=== PATIENT | female | born 1985 | race Asian ===

== ENCOUNTER 2016-11-07 15:31 | Emergency (ER) | payer MEDICAID ==
--- NOTE | 2016-11-07 16:29 | EDPHY ---
H & P Time Seen by Provider: 11/07/16 16:02 HPI/ROS: CHIEF COMPLAINT: Right lateral eyebrow laceration, cough HISTORY OF PRESENT ILLNESS: 31-year-old female presents to the ER with primary complaint of right lateral eyebrow laceration. She is wearing her glasses, some through Frisbee and her glasses impacted this area sustaining a laceration to her right lateral eyebrow. Denies: Loss of consciousness, headache, visual acuity changes, rhinorrhea, midline C-spine pain. 2nd complaint is 1 month of intermittently productive cough without dyspnea, without chest pain without fever or chills without flu-like symptoms. Nonsmoker. REVIEW OF SYSTEMS: A ten point review of systems was performed and is negative with the exception of the items mentioned in the HPI PAST MEDICAL/SURGICAL HISTORY: no anticoagulant use, no relevant medical/ surgical history SOCIAL HISTORY: Nonsmoker PHYSICAL EXAM 1) GENERAL: Well-developed, well-nourished, alert and oriented. Appears to be in no acute distress. Answering questions appropriately. 2) HEAD: Normocephalic, right lateral eyebrow 1.5 cm well-demarcated laceration , superficial 3) HEENT: Pupils equal, round, reactive to light bilaterally. Negative Horners. Nasopharynx, oropharynx, clear. No deformity or angulation of nose. No septal hematoma. No rhinorrhea. No oral trauma. Ears bilaterally with normal tympanic membranes. No hemotympanum. No fluid or blood in the external auditory canal. No raccoon eyes. No Mata sign. Teeth are normally aligned with no gross malocclusion, TMJ bilaterally nontender, facial bones nontender including the zygomatic arch, maxilla mandible. 4) NECK: No cervical collar is on. Posterior cervical spine is nontender, no stepoff, no effusion. Full range of motion which does not elicit any midline cervical spine pain, no posterior midline tenderness, no step-off. 5) LUNGS: Clear to auscultation bilaterally, no wheezes, no rhonchi, no retractions. No flaring, no grunting. Moving symmetrically. No crepitus. 6) HEART: Regular rate and rhythm, 7) ABDOMEN: No guarding, no rebound, no focal tenderness, no peritoneal signs, no signs of trauma, no ecchymosis 8) MUSCULOSKELETAL: Moving all extremities, no focal areas of tenderness, no obvious trauma. 9) BACK: No midline vertebral tenderness, no fluctuance, no step-off, no obvious trauma, no visual or palpable abnormality. 10) SKIN: No laceration. No abrasion DIFFERENTIAL DIAGNOSIS: Not necessarily in any particular order, my differential diagnosis includes, but is not limited to, concussion, skull fracture, intraparenchymal contusion, subarachnoid, subdural and epidural hematoma. The patient understands that this diagnosis is provisional and can never be 100% accurate. Smoking Status: Never smoked Constitutional: Initial Vital Signs Temperature (C) 36.7 C 11/07/16 15:43 Heart Rate 93 11/07/16 15:43 Respiratory Rate 18 11/07/16 15:43 Blood Pressure 117/80 11/07/16 15:43 O2 Sat (%) 99 11/07/16 15:43 O2 Delivery Mode Room Air Allergies/Adverse Reactions: Sulfa (Sulfonamide Antibiotics) Allergy (Verified 11/07/16 15:41) Home Medications: Medication Instructions Recorded AZITHROMYCIN [Z-PACK] 500 mg PO DAILY #1 packet 11/07/16 Albuterol [Proventil Inhaler HFA 1 - 2 puffs IH Q4PRN PRN #1 mdi 11/07/16 (*)] Benzonatate [Tessalon Pearles (RX)] 200 mg PO TID PRN #15 cap 11/07/16 MDM/Departure - MDM Procedures: Procedure: Laceration repair with tissue adhesive Verbal consent was obtained from the patient. The 1.5 cm laceration on the right lateral eyebrowwas scrubbed and explored to its base with a gloved finger. No foreign body seen, no foreign bodies palpated. There were no deep structures involved. The wound was repaired with tissue adhesive. The procedure was performed by myself. Patient has been informed that scarring will occur, although every effort has been made to minimize this. ED Course/Re-evaluation: Regarding the patient's eyebrow lacerations has been closed with tissue adhesive. Doubt intracranial hemorrhage and/or skull fracture. I do not think that imaging currently indicated. Usual and customary head injury precautions instructions provided Regarding the patient's complaint of 1 month of cough, I think a trial of antibiotics is appropriate given the longevity of her symptoms. Do not think that chest x-ray indicated as her lungs are clear bilaterally, she is maintain normal saturations breathing comfortably. She is also prescribed antitussive and albuterol meter dose inhaler. Recommend follow up with primary care provider. - Depart Disposition: Home, Routine, Self-Care Clinical Impression: Cough Laceration of eyebrow Qualifiers: Encounter type: initial encounter Laterality: right Qualified Code(s): S01.111A - Laceration without foreign body of right eyelid and periocular area, initial encounter Condition: Good Instructions: Acute Cough (ED), Laceration (ED) Additional Instructions: PLEASE RETURN TO THE EMERGENCY DEPARTMENT (ED) IMMEDIATELY IF YOU HAVE INCREASED HEADACHE, PERSISTENT HEADACHE, VOMITING, WEAKNESS, CONFUSION OR VISUAL PROBLEMS. WE RECOMMEND THAT YOU DO NOT RESUME CONTACT SPORTS OR ACTIVITIES THAT TAKE COORDINATION OR BALANCE SUCH SKIING OR RIDING A BICYCLE UNTIL CLEARED TO DO SO BY YOUR DOCTOR OR BY A NEUROLOGIST. Prescriptions: Albuterol [Proventil Inhaler HFA (*)] 1 - 2 puffs IH Q4PRN PRN #1 mdi PRN Reason: Cough, Moderate AZITHROMYCIN [Z-PACK] 500 mg PO DAILY #1 packet Benzonatate [Tessalon Pearles (RX)] 200 mg PO TID PRN #15 cap PRN Reason: Cough, Moderate Referrals: Tonia Marsh MD [Primary Care Provider] - 2-3 days, call for appt.
[2016-11-07 16:57] VITALS: BP 122/85; PULSE 94; RESP 16; TEMP 97.9; O2SAT 96
== END 2016-11-07 16:54 | disposition home or self-care (01) ==
PROC: 0HQ1XZZ Repair Face Skin, External Approach (ICD-10-PCS; principal; 2016-11-07)
DX: S01.111A Laceration without foreign body of right eyelid and periocular area, initial encounter (principal); R05 Cough; W25.XXXA Contact with sharp glass, initial encounter

== ENCOUNTER 2016-11-13 14:46 | Emergency (ER) | payer MEDICAID ==
[2016-11-13 14:51] VITALS: BP 111/70; PULSE 84; RESP 18; TEMP 98.6; O2SAT 98
--- NOTE | 2016-11-13 15:30 | EDPHY ---
H & P Smoking Status: Never smoked Time Seen by Provider: 11/13/16 15:22 HPI/ROS: CHIEF COMPLAINT: Wound check right lateral eyebrow laceration HISTORY OF PRESENT ILLNESS: 31-year-old female seen emergency department previously by myself after sustaining laceration to right lateral eyebrow after someone threw a Frisbee which then impacted her glasses which then impacted her skin. At that time the wound is closed with tissue adhesive after usual and customary irrigation in the ER. She returns to the ER stating that she has a purulent discharge from the laceration. At her last emergency department visit she was given a prescription for azithromycin, unrelated to her laceration, she was complaining of ongoing cough, this has now resolved. She denies: Fever, chills, visual acuity changes, pain with extraocular movements. She has no history of chronic skin infections PHYSICAL EXAM (Prior to examination, patient consented to physical exam, hands were washed and my usual and customary physical exam procedures followed) 1) GENERAL: Well-developed, well-nourished, alert and oriented. Appears to be in no acute distress. 2) HEAD: Normocephalic 3) HEENT: sclera anicteric . Extraocular movements are pain-free, no abnormal gaze, there is no proptosis, no crepitus in the periorbital region, no periorbital erythema. 4) LUNGS: Breathing comfortably. 5) SKIN: right lateral laceration has tissue adhesive in place with underlying (Anup,Junior Ashley) Constitutional: Initial Vital Signs Temperature (C) 37 C 11/13/16 14:48 Heart Rate 84 11/13/16 14:48 Respiratory Rate 18 11/13/16 14:48 Blood Pressure 111/70 11/13/16 14:48 O2 Sat (%) 98 11/13/16 14:48 O2 Delivery Mode Room Air Allergies/Adverse Reactions: Sulfa (Sulfonamide Antibiotics) Allergy (Verified 11/13/16 14:48) Home Medications: Medication Instructions Recorded AZITHROMYCIN [Z-PACK] 500 mg PO DAILY #1 packet 11/07/16 Albuterol [Proventil Inhaler HFA 1 - 2 puffs IH Q4PRN PRN #1 mdi 11/07/16 (*)] Benzonatate [Tessalon Pearles (RX)] 200 mg PO TID PRN #15 cap 11/07/16 Cephalexin [Keflex] 500 mg PO TID 7 Days cap 11/13/16 MDM/Departure - [facility] ED Course/Re-evaluation: This patient has no evidence of periorbital or orbital cellulitis. She does have evidence of localized skin infection. She has previously placed on azithromycin for URI symptoms not for wound infection prophylaxis. Today in the ER her wound has been cultured, cleansed, as she does have evidence of localized infection . Tissue adhesive has been removed and will be allowed to heal via secondary intention. This was not a dog bite to this area and it is not clear that this frisbee actually impacted directly to her face. She does note that this frisbee had been hitting the ground, had once gone to the [place] and had been in her friends dog's mouth at 1 time as well. The patient has no history of cutaneous MRSA no history of chronic skin infections and did not sustain direct bite or direct seeding from mouth to this wound. Doubt pasteurella. Plan will be starting the patient on oral Keflex as this should provide adequate coverage for . Care of patient under supervision of secondary supervising physician Dr Garcia . (Junior Hebert) The patient was evaluated and managed by the physician environmental engineering assistant. I have reviewed this chart and I agree with the findings and plan of care as documented , as indicated by my signature. I am the secondary supervising physician. ( Iris Garcia) - Depart Disposition: Home, Routine, Self-Care Clinical Impression: Infected laceration Condition: Good Instructions: Laceration (ED), Wound Infection (ED) Additional Instructions: Return to the emergency department if the area gets tender, if you develop pain with eye movement or any other symptoms that concern you. Prescriptions: Cephalexin [Keflex] 500 mg PO TID 7 Days cap Referrals: Tonia Marsh MD [Primary Care Provider] - 1-2 days without fail
== END 2016-11-13 15:45 | disposition home or self-care (01) ==
DX: L08.9 Local infection of the skin and subcutaneous tissue, unspecified (principal); W22.8XXD Striking against or struck by other objects, subsequent encounter

== ENCOUNTER 2017-11-09 14:23 | Observation (INO) | payer MEDICAID ==
[2017-11-09 15:02] LABS: PLATELET COUNT 275 10^3/uL (150-400)
--- NOTE | 2017-11-09 15:15 | EDPHY ---
H & P Stated Complaint: LMP 07/11/2017 vag bleeding, cramping and passed tissue Time Seen by Provider: 11/09/17 14:50 HPI/ROS: CHIEF COMPLAINT: Vaginal bleeding, HISTORY OF PRESENT ILLNESS: 32-year-old female TAB 1 LMP 07/11/17 presents with vaginal bleeding. Onset of vaginal bleeding 2 days ago. The bleeding is moderate and is associated with moderate pelvic cramping. Using several pads daily. No dizziness or weakness. No care. REVIEW OF SYSTEMS: complete 10 point ROS reviewed and is negative except for the noted elements in the HPI - Personal History LMP (Females 10-55): Current Tetanus Diphtheria and Acellular Pertussis (TDAP): Yes Tetanus Vaccine Date: < 10 years - Medical/Surgical History Hx Asthma: No Hx Chronic Respiratory Disease: No Hx Diabetes: No Hx Cardiac Disease: No Hx Renal Disease: No Hx Cirrhosis: No Hx Alcoholism: No Hx HIV/AIDS: No Hx Splenectomy or Spleen Trauma: No Other PMH: anxiety- takes medicinal marijuana for same/pelvic fx - Social History Smoking Status: Current every day smoker - Physical Exam Exam: General Appearance: Alert, pleasant Eyes: Pupils equal and round, no conjunctival pallor ENT, Mouth: Mucous membranes moist Neck: Normal inspection Respiratory: Lungs are clear to auscultation Cardiovascular: Regular rate and rhythm Gastrointestinal: Abdomen is soft, suprapubic tenderness Genitourinary: Blood clots in vaginal vault, cleared by me, the cervix is open to ringtip forceps Neurological: A&O, nonfocal, normal gait Skin: Warm and dry Extremities: Normal inspection Psychiatric: Mood and affect normal Constitutional: Initial Vital Signs Temperature (C) 36.8 C 11/09/17 14:26 Heart Rate 86 11/09/17 14:26 Respiratory Rate 18 11/09/17 14:26 Blood Pressure 116/79 11/09/17 14:26 O2 Sat (%) 99 11/09/17 14:26 O2 Delivery Mode Room Air Allergies/Adverse Reactions: Sulfa (Sulfonamide Antibiotics) Allergy (Verified 11/13/16 14:48) Home Medications: Medication Instructions Recorded NK [No Known Home Meds] 11/09/17 Medical Decision Making - Diagnostics Imaging Results: Imaging Impressions Obstetrics Ultrasound 11/09/17 14:54 Impression: 8 week 4 day intrauterine gestation with a pole identified within a gestational sac without cardiac activity identified, compatible with demise. Results called to Dr. Bernal at 3:50 p.m. Imaging: Discussed imaging studies w/ title i instructional assistant Radiologist, I viewed and interpreted images myself ED Course/Re-evaluation: This patient presents with pelvic cramping and vaginal bleeding. Quantitative beta HCG 1881. Ultrasound reveals intrauterine demise. Patient has required multiple doses of IV morphine to control the pain. Dr Abel consulted for possible D&C. Will see pt on floor. Pt admitted to L+D. Differential Diagnosis: Differential diagnosis includes though it is not limited to ectopic , ovarian cyst, ovarian torsion, PID, UTI, appendicitis. - Data Points Laboratory Results: Laboratory Results 11/09/17 14:25 11/09/17 14:25 11/09/17 11/09/17 11/09/17 14:50 14:25 14:25 WBC 8.97 10^3/uL 10^3/uL (3.80-9.50) RBC 4.64 10^6/uL 10^6/uL (4.18-5.33) Hgb 14.0 g/dL g/dL (12.6-16.3) Hct 40.5 % % (38.0-47.0) MCV 87.3 fL fL (81.5-99.8) MCH 30.2 pg pg (27.9-34.1) MCHC 34.6 g/dL g/dL (32.4-36.7) RDW 12.3 % % (11.5-15.2) Plt Count 275 10^3/uL 10^3/uL (150-400) MPV 9.7 fL fL (8.7-11.7) Neut % (Auto) 59.0 % % (39.3-74.2) Lymph % (Auto) 33.9 % % (15.0-45.0) [place] % (Auto) 5.4 % % (4.5-13.0) Eos % (Auto) 0.9 % % (0.6-7.6) Baso % (Auto) 0.2 % L % (0.3-1.7) Nucleat RBC Rel Count 0.0 % % (0.0-0.2) Absolute Neuts (auto) 5.30 10^3/uL 10^3/uL (1.70-6.50) Absolute Lymphs (auto) 3.04 10^3/uL H 10^3/uL (1.00-3.00) Absolute Monos (auto) 0.48 10^3/uL 10^3/uL (0.30-0.80) Absolute Eos (auto) 0.08 10^3/uL 10^3/uL (0.03-0.40) Absolute Basos (auto) 0.02 10^3/uL 10^3/uL (0.02-0.10) Absolute Nucleated RBC 0.00 10^3/uL 10^3/uL (0-0.01) Immature Gran % 0.6 % % (0.0-1.1) Immature Gran # 0.05 10^3/uL 10^3/uL (0.00-0.10) Sodium 138 mEq/L mEq/L (135-145) Potassium 3.9 mEq/L mEq/L (3.3-5.0) Chloride 106 mEq/L mEq/L (97-110) Carbon Dioxide 20 mEq/l L mEq/l (22-31) Anion Gap 12 mEq/L mEq/L (8-16) BUN 15 mg/dL mg/dL (7-23) Creatinine 0.6 mg/dL mg/dL (0.6-1.0) Estimated GFR > 60 Glucose 90 mg/dL mg/dL (70-100) Calcium 9.6 mg/dL mg/dL (8.5-10.4) Beta HCG, Quant 1881.90 mIU/mL H mIU/mL (0.00-4.83) Patient ABO/Rh B POSITIVE Medications Given: Morphine Sulfate (Morphine) 4 mg IVP Q1H PRN PRN Reason: Pain, Severe Unable to Take PO Last Admin: 11/09/17 16:37 Dose: 4 mg Discontinued Medications Ondansetron HCl (Zofran) 4 mg IVP EDNOW ONE Stop: 11/09/17 15:45 Last Admin: 11/09/17 15:52 Dose: 4 mg Departure - Departure Disposition: [facility] Acute Clinical Impression: Incomplete miscarriage Condition: Good
[2017-11-09] MEDS ORDERED: ONDANSETRON 4 MG/2 ML VIAL IVP ONE (15:44)
[2017-11-09] MEDS ORDERED: MISOPROSTOL 50 MCG CAP PO ONE (18:52)
[2017-11-09] MEDS ORDERED: fentaNYL 100 MCG/2 ML INJ IVP PRN (18:54)
[2017-11-09] MEDS ORDERED: PROMETHAZINE HCL 25 MG/ML INJ IVP ONE (18:55)
[2017-11-09] MEDS ORDERED: MISOPROSTOL 200 MCG TAB PO ONE (19:30)
[2017-11-09] MEDS ORDERED: KETOROLAC 30 MG/1 ML SDV IVP ONE (19:37)
[2017-11-09 19:39] VITALS: BP 112/75
--- NOTE | 2017-11-09 20:05 | GHP ---
DATE OF ADMISSION: 11/09/2017 HISTORY UPON EVALUATION: The patient is a 32-year-old, G2, A1, female who reports her last men strual period back in July, who also got a positive test about a month ago. Due to the yanira gth of time from her last period, the patient was thinking she was farther along, but on an ultrasoun d performed today in the emergency room, the patient is approximately 8 weeks' gestation with d emise. The patient presented to the emergency room with some vaginal bleeding and strong abdominal c ramping. During the time the patient was in the emergency room, she had IV morphine twice and IV Zof ran. The patient is still reporting waves of strong cramping and she actually passed 2 moderate-size clots in the emergency room and then 1 up on Labor and Delivery. The patient was reporting the cram ping was increasing again. She is saddened by the results of the ultrasound showing the demise . The patient had a traumatic experience with attempting the termination earlier this year. She had misoprostol prior to the procedure and then during the procedure was having quite a bit of pain and they reported difficulty getting the surgical procedure performed. The patient then was sent home an d took more misoprostol and had a spontaneous AB at home. The patient is very anxious about needing to have a surgical procedure and is really not wanting to. She is highly anxious of anesthesia. The patient is hopeful her body can do this on her own. Current by ultrasound is measuring ap proximately 8 weeks' gestation with no cardiac activity. The patient had a blood type done in the emergency room and is B positive. PAST OBSTETRIC HISTORY: Patient had a termination of a earlier this year at [facility] that was attempted surgically, but then the patient completed on her own with misoprostol. PAST MEDICAL HISTORY: Anxiety issues. The patient reports she takes medicinal marijuana for this. PAST SURGICAL HISTORY: Negative. ALLERGIES: Patient is allergic to sulfa. CURRENT MEDICATIONS: The patient denies taking any medication. SOCIAL HISTORY: The patient has a friend with her today, but denies any current supportive sexual pa rtner. The patient reports smoking every day and also uses medical marijuana daily. REVIEW OF SYSTEMS: As noted above. The patient denies any vomiting, but reported nausea after takin g the IV pain medication in the ER. The patient reports she is hungry. LABORATORY: The patient had a CBC performed, which shows her H and H at 14 and 40 with normal platel ets and a white count of 9000. Metabolic panel was normal. HCG level was approximately 1900. PHYSICAL EXAM: GENERAL: On Labor and Delivery, the patient appears in moderate discomfort and is co ntinually shifting her position and has a heating pad on her abdomen. VITAL SIGNS: All normal and t he patient is afebrile. See nursing documentation for full details. ABDOMEN: Soft and nontender. Abdominal ultrasound is performed. There are no sac in the upper uterus. There is what appears to b e the gestational sac down near the upper cervix. There is no free fluid. PELVIC: Exam is performe d. There is minimal blood in the vault. The cervix is fingertip dilated. EXTREMITIES: Nontender. No edema. ASSESSMENT: Inevitable with no cardiac activity at 8 weeks and 4 days on ultrasound M aternal blood type B positive. PLAN: After 45 minutes spent in direct patient contact discussing the patient's current symptoms and her desires, we have decided to proceed with a dose of misoprostol to try to help her uterus complet e the miscarriage on its own. The patient would strongly like to avoid anesthesia and having to proc eed to the operating room. The patient will be given IV pain medication as needed and she will be al lowed to discharge home per her desire. She is advised to follow up in our office within several day s, so we can check the ultrasound to make sure she has passed all the tissue. /[id number]/MODL
== END 2017-11-09 20:35 | disposition home or self-care (01) ==
LOC: FOB 17:06 → FLD 17:35
PROVIDERS: ADMIT Obstetrics & Gynecology; ATTEND Obstetrics & Gynecology
DX: O03.9 Complete or unspecified spontaneous abortion without complication (principal); Z3A.08 8 weeks gestation of pregnancy
CPT/HCPCS: 96374; J1885; J2270; J2405; J2550; J3010

== ENCOUNTER 2018-03-29 04:21 | Observation (INO) | payer MEDICAID ==
[2018-03-29] MEDS ORDERED: NS 1,000 ML IV ONE (04:29)
--- NOTE | 2018-03-29 04:40 | EDPHY ---
H & P Stated Complaint: Vaginal Bleecding Time Seen by Provider: 03/29/18 04:38 HPI/ROS: HPI CHIEF COMPLAINT: Vaginal bleeding, possible miscarriage. HISTORY OF PRESENT ILLNESS: This patient very pleasant 32-year-old female she denies any significant medical history, did have a miscarriage in November of last year, this is her 2nd . However she reports to me she did not take a test she does states she has not had a period since January believe she is . Yesterday she started like bleeding which is progressed tonight with further bleeding. She complains of some pelvic cramping. She believes she is having a miscarriage. Denies any fever, chest pain or shortness of breath. Patient reports to me her last menstrual period January around January 14. Past Medical History: Denies significant medical history Past Surgical History: Denies significant surgical history Social History: Denies drugs alcohol tobacco. Family History: Noncontributory ROS REVIEW OF SYSTEMS: 10 Systems were reviewed and negative with the exception of the elements mentioned in the history of present illness. Exam Constitutional triage nursing summary reviewed, vital signs reviewed, awake/ alert. Eyes normal conjunctivae and sclera, EOMI, PERRLA. HENT normal inspection, atraumatic, moist mucus membranes, no epistaxis, neck supple/ no meningismus, no raccoon eyes. Respiratory clear to auscultation bilaterally, normal breath sounds, no respiratory distress, no wheezing. Cardiovascular rate normal, regular rhythm, no murmur, no edema, distal pulses normal. Gastrointestinal soft, non-tender, no rebound, no guarding, normal bowel sounds, no distension, no pulsatile mass. Genitourinary no CVA tenderness. Musculoskeletal no midline vertebral tenderness, full range of motion, no calf swelling, no tenderness of extremities, no meningismus, good pulses, neurovascularly intact. Skin pink, warm, & dry, no rash, skin atraumatic. Neurologic awake, alert and oriented x 3, AAOx3, moves all 4 extremities equally, motor intact, sensory intact, CN II-XII intact, normal cerebellar, normal vision, normal speech. Psychiatric normal mood/affect. Heme/Lymph/Immune no lymphadenopathy. Differential Diagnosis: Includes but is not limited to in a particular order miscarriage, threatened AB, ectopic Medical Decision Making: Plan for this patient IV establishment fluid bolus, type and screen ABO Rh, hCG quant, ultrasound OB less than 14 weeks to evaluate for threatened miscarriage versus ectopic. Re-evaluation: 6:07 a.m. patient's ultrasound faxed to me no evidence of intra or extrauterine gestation on ultrasound. No free fluid unremarkable uterus Beta quant 1999. Patient reports to me her last menstrual period was in January. 616: Patient continued to have bleeding. Severe pelvic cramping. She is hemodynamically stable with stable blood pressure H&H are stable. ABO type is B positive Beta quant 1999 Ultrasound unrevealing. 6:18 a.m. I discussed the case with OBGYN. Dr. Coburn who agrees the patient be admitted up to Labor and delivery for observation and further management. Discussed this with the patient she is agreeable. Source: Patient - Personal History LMP (Females 10-55): Over 28 Days Ago Current Tetanus/Diphtheria Vaccine: Yes Current Tetanus Diphtheria and Acellular Pertussis (TDAP): Yes Tetanus Vaccine Date: < 10 years - Medical/Surgical History Hx Asthma: No Hx Chronic Respiratory Disease: No Hx Diabetes: No Hx Cardiac Disease: No Hx Renal Disease: No Hx Cirrhosis: No Hx Alcoholism: No Hx HIV/AIDS: No Hx Splenectomy or Spleen Trauma: No Other PMH: anxiety- takes medicinal marijuana for same/pelvic fx - Social History Smoking Status: Current every day smoker Constitutional: Initial Vital Signs Temperature (C) 36.8 C 03/29/18 04:28 Heart Rate 73 03/29/18 04:28 Respiratory Rate 18 03/29/18 04:28 Blood Pressure 132/92 H 03/29/18 04:28 O2 Sat (%) 97 03/29/18 04:28 O2 Delivery Mode Room Air Allergies/Adverse Reactions: Sulfa (Sulfonamide Antibiotics) Allergy (Verified 03/29/18 04:27) Home Medications: Medication Instructions Recorded Ibuprofen [Motrin (*)] 600 mg PO Q6HRS PRN tab 03/29/18 Medical Decision Making - Data Points Laboratory Results: Laboratory Results 03/29/18 04:36 03/29/18 04:36 Medications Given: Discontinued Medications Hydromorphone HCl (Dilaudid) 0.5 mg IVP EDNOW ONE Stop: 03/29/18 05:34 Last Admin: 03/29/18 05:34 Dose: 0.5 mg Sodium Chloride (Ns) 1,000 mls @ 0 mls/hr IV EDNOW ONE; Wide Open PRN Reason: Protocol Stop: 03/29/18 04:30 Last Admin: 03/29/18 04:34 Dose: 1,000 mls Promethazine HCl 25 mg/ (Lactated Ringer's) 501 mls @ 501 mls/hr IV ONCE ONE Stop: 03/29/18 08:59 Last Admin: 03/29/18 07:45 Dose: 501 mls Ketorolac Tromethamine (Toradol) 30 mg IVP ONCE ONE Stop: 03/29/18 08:31 Last Admin: 03/29/18 08:29 Dose: 30 mg Morphine Sulfate (Morphine) 4 mg IVP EDNOW ONE Stop: 03/29/18 04:55 Last Admin: 03/29/18 04:55 Dose: 4 mg Ondansetron HCl (Zofran) 4 mg IVP EDNOW ONE Stop: 03/29/18 04:55 Last Admin: 03/29/18 04:55 Dose: 4 mg Departure - Departure Disposition: [facility] Acute Clinical Impression: Miscarriage Condition: Good
[2018-03-29 04:46] LABS: PLATELET COUNT 290 10^3/uL (150-400)
[2018-03-29] MEDS ORDERED: ONDANSETRON 4 MG/2 ML VIAL ONE (04:52)
[2018-03-29] MEDS ORDERED: ONDANSETRON 4 MG/2 ML VIAL IVP ONE (04:54)
[2018-03-29] MEDS ORDERED: HYDROmorphONE/DILAUDID 2 MG/ML INJ ONE (05:32)
[2018-03-29] MEDS ORDERED: HYDROmorphONE/DILAUDID 2 MG/ML INJ IVP ONE (05:33)
[2018-03-29] MEDS ORDERED: PROMETHAZINE HCL IV ONE (08:00)
[2018-03-29] MEDS ORDERED: LR IV ONE (08:00)
[2018-03-29] MEDS ORDERED: KETOROLAC 30 MG/1 ML SDV IVP ONE (08:30)
[2018-03-29] MEDS ORDERED: IBUPROFEN 600 MG TAB PO PRN (10:06)
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
[2018-03-29 11:15] VITALS: BP 103/55
== END 2018-03-29 10:55 | disposition home or self-care (01) ==
LOC: FLD 06:43
PROVIDERS: ADMIT Obstetrics & Gynecology; ATTEND Obstetrics & Gynecology
DX: O02.1 Missed abortion (principal); F41.9 Anxiety disorder, unspecified; Z87.81 Personal history of (healed) traumatic fracture; F17.210 Nicotine dependence, cigarettes, uncomplicated; E86.0 Dehydration
CPT/HCPCS: J1170; J1885; J2270; J2405; J2550